=== PATIENT | male | born 1985 | race Caucasian/White ===

== ENCOUNTER 2024-05-31 19:53 | Inpatient (IN) | payer OTHER ==
[2024-05-31 20:57] VITALS: BMI 37.5
[2024-05-31] MEDS ORDERED: BENZOCAINE/MENTHOL (CHLORASEPTIC ) LOZENGE MM PRN (21:15)
[2024-05-31] MEDS ORDERED: MAG HYDROX/AL HYDROX/SIMETH 30 ML UNIT-DOSE CUP PO PRN (21:15)
[2024-05-31] MEDS ORDERED: POLYETHYLENE GLYCOL (HEALTHYLAX) 3350 17 GM PACKET PO PRN (21:15)
[2024-05-31] MEDS ORDERED: DICYCLOMINE HCL 10 MG CAPSULE PO PRN (21:15)
[2024-05-31] MEDS ORDERED: NICOTINE POLACRILEX 2 MG GUM BUC PRN (21:15)
[2024-05-31] MEDS ORDERED: MAGNESIUM HYDROX 2400MG/30ML ORAL SUSPENSION 30 ML CUP PO PRN (21:15)
[2024-05-31] MEDS ORDERED: NALOXONE (NARCAN) HCL 4 MG/0.1 ML SPRAY NS PRN (21:15)
[2024-05-31] MEDS ORDERED: IBUPROFEN 400 MG TABLET (FP) PO PRN (21:15)
[2024-05-31] MEDS ORDERED: BISMUTH SUBSALICYLATE 524 MG/30 ML PO PRN (21:15)
[2024-05-31] MEDS ORDERED: LOPERAMIDE HCL 2 MG CAPSULE PO PRN (21:15)
[2024-05-31] MEDS ORDERED: guaiFENesin 600 MG TABLET.ER (FP) PO PRN (21:15)
[2024-05-31] MEDS ORDERED: NALOXONE HCL 0.4 MG/ML VIAL IM PRN (21:15)
[2024-05-31] MEDS ORDERED: NICOTINE POLACRILEX 2 MG LOZENGE BC PRN (21:15)
[2024-05-31] MEDS ORDERED: BENZONATATE 200 MG CAPSULE PO PRN (21:15)
[2024-05-31] MEDS ORDERED: chlordiazePOXIDE HCL 25 MG CAPSULE PO PRN (21:18)
[2024-05-31] MEDS ORDERED: chlordiazePOXIDE HCL 25 MG CAPSULE ONE (22:30)
[2024-05-31] MEDS ORDERED: levETIRAcetam 500 MG TABLET (FP) PO ONE (22:31)
[2024-05-31] MEDS ORDERED: ONDANSETRON *ODT* 4 MG TABLET ONE (22:31)
[2024-05-31] MEDS: ONDANSETRON *ODT* 4 MG TABLET SL PRN (22:33)
[2024-05-31] MEDS: levETIRAcetam 500 MG TABLET (FP) PO SCH (22:37)
[2024-05-31] MEDS: chlordiazePOXIDE HCL 25 MG CAPSULE PO SCH (22:52)
[2024-05-31] MEDS: METHOCARBAMOL 500 MG TABLET PO PRN (23:13)
[2024-05-31] MEDS: THIAMINE 100 MG TABLET PO SCH (23:16)
[2024-05-31] MEDS: MELATONIN 5 MG TABLETS PO SCH (23:16)
[2024-06-01] MEDS ORDERED: methaDONE HCL 10 MG TABLET PO SCH (08:45)
[2024-06-01] MEDS: PRENATAL VITAMINS W/ FOLIC ACID TABLET (FP) PO SCH (09:26)
[2024-06-01 11:40] LABS: HEMATOCRIT 34.2 % (35.4-49); HEMOGLOBIN 11.1 GM/dL (11.7-16.9); MCH 25.2 pg (25.7-33.7); MCHC 32.4 g/dl (32.0-35.9); MEAN CELL VOLUME 77.8 fl (80-96); MEAN PLT VOLUME 7.9 fl (7.5-11.1); PLATELET COUNT 211 10^3/uL (134-434); RDW 16.3 % (11.9-15.9); WHITE BLOOD COUNT 5.4 K/mm3 (4.0-10.0)
[2024-06-01 12:09] LABS: POTASSIUM 3.5 mmol/L (3.5-5.1)
[2024-06-01 12:16] LABS: ALBUMIN 3.6 g/dl (3.4-5.0); BLOOD UREA NITROGEN 13.2 mg/dL (7-18); CALCIUM 9.2 mg/dL (8.5-10.1)
[2024-06-01 12:21] LABS: BILIRUBIN,TOTAL 0.5 mg/dL (0.2-1); TOT PROT 7.1 g/dl (6.4-8.2)
[2024-06-01] MEDS: IBUPROFEN 600 MG TABLET (FP) PO PRN (22:48)
[2024-06-02] MEDS: chlordiazePOXIDE HCL 25 MG CAPSULE PO SCH (05:52)
[2024-06-02] MEDS: PANTOPRAZOLE 40 MG TABLET PO SCH (12:30)
[2024-06-02] MEDS: PATIENT'S OWN MEDICATION (NON-FORMULARY) (Omeprazole 20 MG Capsule.Dr) PO SCH (12:33)
[2024-06-02] MEDS: PANTOPRAZOLE 40 MG TABLET PO ONE (12:34)
[2024-06-02] MEDS: GABAPENTIN 300 MG CAPSULE PO SCH (13:21)
[2024-06-02] MEDS ORDERED: PATIENT'S OWN MEDICATION (NON-FORMULARY) (Gabapentin [Gabapentin] 800 MG Tablet) PO SCH (14:00)
[2024-06-03] MEDS ORDERED: chlordiazePOXIDE HCL 10 MG CAPSULE PO PRN
[2024-06-03] MEDS: chlordiazePOXIDE HCL 10 MG CAPSULE PO SCH (05:30)
[2024-06-03] MEDS: BENZOCAINE 20 % GEL TUBE MM PRN (13:53)
[2024-06-03] MEDS: ACETAMINOPHEN 325 MG TABLET (FP) PO PRN (14:00)
[2024-06-03 16:54] VITALS: RESP 18
[2024-06-04] MEDS: chlordiazePOXIDE HCL 10 MG CAPSULE PO SCH (06:06)
[2024-06-04 06:19] VITALS: PULSE 65
[2024-06-04 09:22] VITALS: BP 133/81; TEMP 98.2
[2024-06-05] MEDS ORDERED: chlordiazePOXIDE HCL 10 MG CAPSULE PO ONE (05:00)
== END 2024-06-04 10:27 | disposition home or self-care (01) | DRG 773 ==
LOC: YASAS 19:53 → Y3N 22:24
PROVIDERS: ADMIT Allergy & Immunology; ATTEND Surgery
PROC: HZ2ZZZZ Detoxification Services for Substance Abuse Treatment (ICD-10-PCS; principal; 2024-05-31)
DX: F10.230 Alcohol dependence with withdrawal, uncomplicated (principal); F11.20 Opioid dependence, uncomplicated; F14.20 Cocaine dependence, uncomplicated; F12.20 Cannabis dependence, uncomplicated; F17.210 Nicotine dependence, cigarettes, uncomplicated; F19.94 Other psychoactive substance use, unspecified with psychoactive substance-induced mood disorder; K21.9 Gastro-esophageal reflux disease without esophagitis; M54.59 Other low back pain; G89.29 Other chronic pain; G47.00 Insomnia, unspecified; Z56.0 Unemployment, unspecified; Z59.00 Homelessness unspecified
CPT/HCPCS: 36415; 80053; 80305; 85027; 86780; 93005; 93010; Q0162